=== PATIENT | female | born 1975 | race Caucasian/White ===

== ENCOUNTER 2019-07-24 18:22 | Inpatient (IN) | payer OTHER ==
[2019-07-24 19:32] LABS: BASO % 1.2 % (0-2.0); EOS % 2.6 % (0-4.5); HEMATOCRIT 34.7 % (32.4-45.2); HEMOGLOBIN 11.9 GM/dL (10.7-15.3); LYMPH % 31.2 % (8-40); MCH 31.4 pg (25.7-33.7); MCHC 34.2 g/dl (32.0-36.0); MEAN CELL VOLUME 91.8 fl (80-96); MEAN PLT VOLUME 10.1 fl (7.5-11.1); MONO % 8.1 % (3.8-10.2); NEUT % 56.9 % (42.8-82.8); PLATELET COUNT 244 K/MM3 (134-434); RBC 3.78 M/mm3 (3.60-5.2); RDW 13.2 % (11.6-15.6); WHITE BLOOD COUNT 7.3 K/mm3 (4.0-10.0)
--- NOTE | 2019-07-24 19:35 | PDOC ---
History of Present Illness - General Chief Complaint: Pain Stated Complaint: RT SIDE ABD PAIN Time Seen by Provider: 07/24/19 19:35 History Source: Patient Exam Limitations: No Limitations - History of Present Illness Initial Comments: 44-year-old female with past medical history of gallstones, kidney stones presented to the emergency department for right upper quadrant pain. Patient reported shes been dealing with this pain since around , the week after she followed up with a G.I. doctor, who told her she had gallstones and a kidney stone after getting an ultrasound performed. She reported she had an endoscopy performed two weeks ago, showing she has duodenitis, she reported she was placed on a PPI at that time. Patient reported today she was eating bland foods (banana/soup), and was still feeling pain after every time as she would eat food. She reported the pain is not worse in intensity than before, but it is occurring with more frequency and even with bland foods now. She denies fever, chills, Chest pain, shortness of breath, headache, blood in stool. She reported she has loose stools sometimes. Pt last took Tylenol around 1300 today. ROS General: denied fever, chills, generalized weakness. HEENT: denied sore throat, rhinorrhea, ear pain. Cardiovascular: denied chest pain, palpitations, syncope, diaphoresis. Respiratory: denied shortness of breath, cough, sputum production, hemoptysis. Gastrointestinal: admitted to abdominal pain. denied nausea, vomiting, diarrhea , constipation, blood in stool. Genitourinary: denied dysuria, increased urinary frequency, hematuria, urinary incontinence, flank pain. Back: denied back pain. Musculoskeletal: denied joint pain, muscle pain, joint swelling. Neurological: denied headache, dizziness, numbness, tingling, weakness. Integumentary: denied rash, laceration, abrasion. Hematologic/Lymphatic: denied bruising or bleeding. PE Constitutional: Well-nourished, Well-developed, appearing stated age. HEENT: head is normocephalic, atraumatic. EOMI. PERRLA. Neck: supple. Full ROM. Cardiovascular: regular heart rhythm. no murmurs. no pericardial friction rub. Respiratory: clear to auscultation bilaterally. no crackles, rhonchi or wheezing. no stridor. Gastrointestinal: soft, flat. tenderness to RUQ, positive murphys. normal bowel sounds. no rebound, guarding, masses. Extremities: peripheral pulses intact. no lower extremity edema. Neurological: CN 2-12 grossly intact. moves all four extremities. Psych: awake, alert, oriented x3. follows commands. answers questions appropriately. Past History - Past Medical History Allergies/Adverse Reactions: Allergies Allergy/AdvReac Type Severity Reaction Status Date / Time codeine Allergy Severe Difficulty Verified 07/24/19 18:44 Breathing Home Medications: Ambulatory Orders Ibuprofen [Motrin -] 600 mg PO TID #21 tablet 07/27/19 - Immunization History Immunization Up to Date: Yes - Psycho Social/Smoking Cessation Hx Smoking History: Never smoked Have you smoked in the past 12 months: No Information on smoking cessation initiated: No Hx Alcohol Use: No Drug/Substance Use Hx: No Substance Use Type: None Hx Substance Use Treatment: No *Physical Exam - Vital Signs Last Vital Signs Temp Pulse Resp BP Pulse Ox 98.2 F 79 18 125/79 97 07/24/19 18:44 07/24/19 18:44 07/24/19 18:44 07/24/19 18:44 07/24/19 18:44 ED Treatment Course - LABORATORY CBC & Chemistry Diagram: 07/24/19 19:15 07/24/19 19:15 Medical Decision Making - Medical Decision Making 44 year old female with above PMH presented to ED for RUQ pain associated with eating. Abdominal examination significant for RUQ tenderness with positive murphys. PSH: tubal ligation Pt reported she is currently on her menstrual period. Initial Vital Signs Temp Pulse Resp BP Pulse Ox 98.2 F 79 18 125/79 97 07/24/19 18:44 07/24/19 18:44 07/24/19 18:44 07/24/19 18:44 07/24/19 18:44 Afebrile. No tachycardia. No tachypnea. No hypotension. No hypoxia on room air. Labs ordered: CBC, CMP, UA/UC, serum testing, lipase Imaging ordered: RUQ US Medications ordered: pepcid, maalox, tylenol, normal saline bolus 1000 cc once Pt's symptoms seem consistent with cholelithiasis vs cholecystitis. Nephrolithiasis low on differential, but also possible. Will evaluate for right sided hydro with RUQ US. 07/24/19 19:54 Laboratory Last Values Lipase 171 U/L (73-393) 07/24/19 19:15 Urine Color Yellow 07/24/19 19:15 Urine Appearance Clear 07/24/19 19:15 Urine pH 5.5 (5.0-8.0) 07/24/19 19:15 Ur Specific [place] 1.019 (1.010-1.035) 07/24/19 19:15 Urine Protein Negative (NEGATIVE) 07/24/19 19:15 Urine Glucose (UA) Negative (NEGATIVE) 07/24/19 19:15 Urine Ketones Negative (NEGATIVE) 07/24/19 19:15 Urine Blood 3+ (NEGATIVE) H 07/24/19 19:15 Urine Nitrite Negative (NEGATIVE) 07/24/19 19:15 Urine Bilirubin Negative (NEGATIVE) 07/24/19 19:15 Urine Urobilinogen 0.2 mg/dL (0.2-1.0) 07/24/19 19:15 Ur Leukocyte Esterase Negative (NEGATIVE) 07/24/19 19:15 Urine WBC (Auto) 0 /hpf (0-5) 07/24/19 19:15 Urine RBC (Auto) 19 /hpf (0-4) 07/24/19 19:15 Urine Casts (Auto) 1 /lpf (0-8) 07/24/19 19:15 U Epithel Cells (Auto) 0.4 /HPF (0-5/HPF) 07/24/19 19:15 Urine Bacteria (Auto) 1.9 /hpf (NEGATIVE) 07/24/19 19:15 No pancreatitis. Hematuria likely contaminate of menstrual bleeding. No UTI. 07/24/19 20:05 CBC WBC 7.3 K/mm3 (4.0-10.0) 07/24/19 19:15 RBC 3.78 M/mm3 (3.60-5.2) 07/24/19 19:15 Hgb 11.9 GM/dL (10.7-15.3) 07/24/19 19:15 Hct 34.7 % (32.4-45.2) 07/24/19 19:15 MCV 91.8 fl (80-96) 07/24/19 19:15 MCH 31.4 pg (25.7-33.7) 07/24/19 19:15 MCHC 34.2 g/dl (32.0-36.0) 07/24/19 19:15 RDW 13.2 % (11.6-15.6) 07/24/19 19:15 Plt Count 244 K/MM3 (134-434) 07/24/19 19:15 MPV 10.1 fl (7.5-11.1) 07/24/19 19:15 Absolute Neuts (auto) 4.2 K/mm3 (1.5-8.0) 07/24/19 19:15 Neutrophils % 56.9 % (42.8-82.8) 07/24/19 19:15 Lymphocytes % 31.2 % (8-40) 07/24/19 19:15 Monocytes % 8.1 % (3.8-10.2) 07/24/19 19:15 Eosinophils % 2.6 % (0-4.5) D 07/24/19 19:15 Basophils % 1.2 % (0-2.0) 07/24/19 19:15 Nucleated RBC % 0 % (0-0) 07/24/19 19:15 No leukocytosis. No anemia. 07/24/19 20:33 RUQ US report: Referring Physician: NORMAN ROJAS Comments: Shalom Lopez MD wrote on Jul 24, 2019 at 08:28 PM: Referring Physician: NORMAN ROJAS Patient Name: VEENA HINES THIS IS A PRELIMINARY REPORT FROM [facility] DATE OF SERVICE: 2019-07-24 19:38:12 IMAGES: 55 EXAM: Right upper quadrant ultrasound History: 44-year-old female, right upper quadrant pain, history of gallbladder stones, evaluate for cholecystitis versus nephrolithiasis Comparison: No comparison exam is available. Technique: Multiple transverse and longitudinal images of the right upper quadrant, IVC are obtained. Findings: Liver: Hyperechoic liver parenchyma No biliary ductal dilatation. Normal directional hepatic flow. Gallbladder: Cholelithiasis and a distended gallbladder with wall echo shadow complex. Mild gallbladder wall thickening up to 3.5 mm. No sonographic Gracia sign. Extra hepatic bile duct caliber: Within normal limits measuring 5 mm. Pancreatic head and body: Not well evaluated on ultrasound. Right kidney: No hydronephrosis. Fluid: None. IVC: Visualized portions unremarkable. IMPRESSION: Cholelithiasis and a distended gallbladder with mild wall thickening. No sonographic Garcia sign. Examination is equivocal for acute cholecystitis. No right renal calculi identified. Hyperechoic liver parenchyma is nonspecific and can be seen in the setting of hepatic steatosis and other diffuse hepatic parenchymal diseases. THIS DOCUMENT HAS BEEN ELECTRONICALLY SIGNED Shalom Lopez MD 07/24/2019 20:27 GREGORIO Cuevas. Please call [facility] [phone] with questions. Shalom Lopez MD Clinicians - Please contact [facility] with further questions at [phone] Patients - Please contact your Ordering Provider with questions. Pt reported she last ate a banana around 1700 and potatoe soup around 1300. CMP Sodium 139 mmol/L (136-145) 07/24/19 19:15 Potassium 4.1 mmol/L (3.5-5.1) 07/24/19 19:15 Chloride 106 mmol/L (98-107) 07/24/19 19:15 Carbon Dioxide 26 mmol/L (21-32) 07/24/19 19:15 Anion Gap 6 MMOL/L (8-16) L 07/24/19 19:15 BUN 8.6 mg/dL (7-18) 07/24/19 19:15 Creatinine 0.5 mg/dL (0.55-1.3) L 07/24/19 19:15 Est GFR (CKD-EPI)AfAm 134.52 07/24/19 19:15 Est GFR (CKD-EPI)NonAf 116.07 07/24/19 19:15 Random Glucose 97 mg/dL (74-106) 07/24/19 19:15 Calcium 8.4 mg/dL (8.5-10.1) L 07/24/19 19:15 Total Bilirubin 0.2 mg/dL (0.2-1) 07/24/19 19:15 AST 16 U/L (15-37) 07/24/19 19:15 ALT 31 U/L (13-61) 07/24/19 19:15 Alkaline Phosphatase 84 U/L (45-117) 07/24/19 19:15 Total Protein 7.1 g/dl (6.4-8.2) 07/24/19 19:15 Albumin 3.6 g/dl (3.4-5.0) 07/24/19 19:15 Lipase 171 U/L (73-393) 07/24/19 19:15 Serum , Qual Negative 07/24/19 19:15 No clinically concerning electrolyte abnormalities. No DARSHAN. Not ransaminitis. Lipase wnl. Serum testing negative. 07/24/19 20:[address] Bond was consulted, he recommended admission with Surgery consult with Dr. Quijano. Consult placed in computer. Pt informed and agrees with plan for care. Pending admission. If acute cholecysitis would be mild, no fever, no elevated WBC, no LFT elevation , non-toxic appearing, will hold antibiotics for now. Case discussed with Dr. King. 07/24/19 22:01 EKG performed at 2158: rate 65, regular rhythm, normal axis, normal intervals, no acute ST changes. Discharge - Discharge Information Problems reviewed: Yes Clinical Impression/Diagnosis: Cholelithiasis Qualifiers: Cholecystitis acuity: chronic Condition: Stable Disposition: HOME - Admission Yes - Follow up/Referral - Patient Discharge Instructions - Post Discharge Activity
[2019-07-24 19:37] LABS: EPI CELLS 0.4 /HPF (0-5/HPF); HYALINE CASTS 1 /lpf (0-8); PH,URINE 5.5 (5.0-8.0); URINE APPEARANCE CLEAR; URINE BACTERIA 1.9 /hpf (NEGATIVE); URINE BILIRUBIN NEGATIVE (NEGATIVE); URINE COLOR YELLOW; URINE GLUCOSE (UA) NEGATIVE (NEGATIVE); URINE KETONE NEGATIVE (NEGATIVE); URINE LEUK ESTERASE NEGATIVE (NEGATIVE); URINE NITRITE NEGATIVE (NEGATIVE); URINE PROTEIN NEGATIVE (NEGATIVE); URINE RBC 19 /hpf (0-4); URINE UROBILINOGEN 0.2 mg/dL (0.2-1.0); URINE WBC 0 /hpf (0-5)
[2019-07-24] MEDS ORDERED: SODIUM CHLORIDE 1,000 ML IV STA (19:37)
[2019-07-24] MEDS ORDERED: MAG HYDROX/AL HYDROX/SIMETH 30 ML UNIT-DOSE CUP PO ONE (19:37)
[2019-07-24] MEDS ORDERED: FAMOTIDINE 20 MG/50 ML IVPB 20 MG/50 ML MG IVPB ONE ×2 (19:37→19:46)
[2019-07-24] MEDS ORDERED: ACETAMINOPHEN 1000 MG/100 ML VIAL (NON FORMULARY) IVPB ONE (19:37)
--- NOTE | 2019-07-24 19:45 | PDOC ---
Attending Attestation - Resident Resident Name: Dana Moya - ED Attending Attestation I have performed the following: I have examined & evaluated the patient, The case was reviewed & discussed with the resident, I agree w/resident's findings & plan - HPI HPI: 07/24/19 19:48 Pt has RUQ pain and flank pain HX of kidney and GB stones No with pain despite bland diet/low fat diet for her gastritis. - Physicial Exam PE: 07/24/19 21:18 Agree with resident exam +RUQ pain; no flank pain elicited by me No suprapubic pain Ext non swollen no rashes HEENT normal afebrile no timbo deficits. - Medical Decision Making 07/24/19 21:19 Pt comes with RUQ pain; foind to have gb stones and biliary colic. NO thickening of the GB wall and no CBD dilation. She will be admitted for abd pain - accepted for admission by her PMD (Dr Castillo) - She will get GI eval in house. 07/24/19 21:58 Pt is stable at this time with hydration and with Iv tylenol; she doesn't need more pain meds at this time.
[2019-07-24] MEDS ORDERED: MAG HYDROX/AL HYDROX/SIMETH 30 ML UNIT-DOSE CUP ONE ×2 (19:46)
[2019-07-24] MEDS ORDERED: ACETAMINOPHEN INJECTION 100 ML IVPB ONE (19:46)
[2019-07-24 20:13] LABS: ALBUMIN 3.6 g/dl (3.4-5.0); BILIRUBIN,TOTAL 0.2 mg/dL (0.2-1); BLOOD UREA NITROGEN 8.6 mg/dL (7-18); CALCIUM 8.4 mg/dL (8.5-10.1); CREATININE 0.5 mg/dL (0.55-1.3); POTASSIUM 4.1 mmol/L (3.5-5.1); TOT PROT 7.1 g/dl (6.4-8.2)
[2019-07-24 23:43] VITALS: BMI 30.4
--- NOTE | 2019-07-25 09:36 | CONSULT ---
- Consultation REQUESTING PROVIDER: CONSULT REQUEST: We have been asked to surgically evaluate this patient for RUQ pain, gallbladder disease. PCP:Estela Bond HISTORY OF PRESENT ILLNESS: 38 yo female with h/o of gallstone disease. She started to have bloating and pain this fall and was seen by GI as an outpatient at [facility]. s/p EGD several weeks ago and was found to have inflammation in the duodenum, biopsy taken and negative as per patient report. She has been taking prilosec as prescribed after the procedure. Her RUQ pain/bloating increased and she was admitted to the hospital. No nausea or emesis this am. Pain improved with tylenol. She denies any fevers/chills. PMHx: kidney stone PSHx: laparoscopic tubal ligation Home Medications Medication Instructions Recorded NK [No Known Home Medication] 07/24/19 Allergies Allergy/AdvReac Type Severity Reaction Status Date / Time codeine Allergy Severe Difficulty Verified 07/24/19 18:44 Breathing REVIEW OF SYSTEMS: CONSTITUTIONAL: Absent: fever, chills CARDIOVASCULAR: Present: palpitations(resolved was seen by cardiology and had Echo/holter monitor) RESPIRATORY: Absent: cough, shortness of breath GASTROINTESTINAL: Present: abdominal pain, abdominal distension to upper abd. No puritits/icteric sclera. GENITOURINARY: Absent: dysuria, hematuria MUSCULOSKELETAL: Present: right hip pain s/p injection in the pain with pain resolution HEMATOLOGIC/IMMUNOLOGIC: Absent: easy bleeding, easy bruising PHYSICAL EXAM: GENERAL: Awake, alert, and fully oriented, in no acute distress. LUNGS: Clear to auscultation bilat anteriorly. No wheezes. HEART: Regular rate and rhythm. No murmurs ABDOMEN: Soft, mild RUQ pain with palpation. No masses. MUSCULOSKELETAL: No CVA tenderness. LOWER EXTREMITIES: 2+ pulses, warm, well-perfused. No calf tenderness. NEUROLOGICAL: Normal speech, gait not observed. PSYCH: Cooperative. Good eye contact. Appropriate mood and affect. Vital Signs Temperature 98.0 F 07/25/19 08:14 Pulse Rate 85 07/25/19 08:14 Respiratory Rate 15 07/25/19 08:14 Blood Pressure 130/70 07/25/19 08:14 O2 Sat by Pulse Oximetry (%) 99 07/25/19 08:22 Lab Results WBC 7.3 K/mm3 (4.0-10.0) 07/24/19 19:15 RBC 3.78 M/mm3 (3.60-5.2) 07/24/19 19:15 Hgb 11.9 GM/dL (10.7-15.3) 07/24/19 19:15 Hct 34.7 % (32.4-45.2) 07/24/19 19:15 MCV 91.8 fl (80-96) 07/24/19 19:15 MCHC 34.2 g/dl (32.0-36.0) 07/24/19 19:15 RDW 13.2 % (11.6-15.6) 07/24/19 19:15 Plt Count 244 K/MM3 (134-434) 07/24/19 19:15 Sodium 139 mmol/L (136-145) 07/24/19 19:15 Potassium 4.1 mmol/L (3.5-5.1) 07/24/19 19:15 Chloride 106 mmol/L (98-107) 07/24/19 19:15 Carbon Dioxide 26 mmol/L (21-32) 07/24/19 19:15 Anion Gap 6 MMOL/L (8-16) L 07/24/19 19:15 BUN 8.6 mg/dL (7-18) 07/24/19 19:15 Creatinine 0.5 mg/dL (0.55-1.3) L 07/24/19 19:15 Random Glucose 97 mg/dL (74-106) 07/24/19 19:15 Calcium 8.4 mg/dL (8.5-10.1) L 07/24/19 19:15 Laboratory Tests 07/24/19 19:15 Serum , Qual Negative US: gallbladder thickened and multiple gallstones Problem List - Problems (1) Cholelithiasis Assessment/Plan: Pt with symptomatic cholelithaisis s/p EGD with negative biopsy for H pylori. Persistant RUQ pain mostly likely caused by chronic cholelithiasis. Will plan for laparoscopic choleycystectomy today with Dr. Quijano if patient aggreable, she has some further questions for him prior to giving consent for the procedure. Spoke with the medical team, pt to remain npo for possible surgery today Code(s): K80.20 - CALCULUS OF GALLBLADDER W/O CHOLECYSTITIS W/O OBSTRUCTION Qualifiers: Cholecystitis acuity: chronic
[2019-07-25] MEDS ORDERED: SODIUM CHLORIDE 1,000 ML IV SCH ×2 (09:45→10:15)
[2019-07-25] MEDS ORDERED: BUPIVACAINE HCL/PF 0.5% (5 MG/ML) 30 ML VIAL IJ ONE ×2 (09:45→14:28)
[2019-07-25] MEDS ORDERED: FLU VACCINE QUAD 60 MCG/0.5 ML (MDV 19-20) IM ONE ×2 (10:00→20:30)
[2019-07-25] MEDS ORDERED: ACETAMINOPHEN 325 MG TABLET (FP) PO PRN ×2 (10:16→16:49)
--- NOTE | 2019-07-25 10:29 | PN ---
Progress Note, Physician Chief Complaint: Pt lying in bed afebrile,no pain abdomen now No nausea,vomiting Pt is NPO - Current Medication List Current Medications: Active Medications Acetaminophen (Tylenol -) 650 mg PO Q6H PRN PRN Reason: PAIN LEVEL 1-5 Sodium Chloride (Normal Saline -) 1,000 mls @ 100 mls/hr IV ASDIR SALMA - Objective Vital Signs: Vital Signs Temperature 98.0 F 07/25/19 08:14 Pulse Rate 85 07/25/19 08:14 Respiratory Rate 15 07/25/19 08:14 Blood Pressure 130/70 07/25/19 08:14 O2 Sat by Pulse Oximetry (%) 99 07/25/19 08:22 Eyes: Yes: Conjunctiva Clear Neck: Yes: Supple, Trachea Midline Cardiovascular: Yes: Regular Rate and Rhythm Respiratory: Yes: Regular, CTA Bilaterally Gastrointestinal: Yes: Normal Bowel Sounds, Soft Musculoskeletal: Yes: WNL Extremities: Yes: WNL Edema: No Peripheral Pulses WNL: Yes Neurological: Yes: WNL, Alert Psychiatric: Yes: WNL, Alert Labs: CBC, BMP 07/24/19 19:15 07/24/19 19:15 - ....Imaging Chest X-ray: Report Reviewed Ultrasound: Report Reviewed Assessment/Plan cholelithiasis biliary colic gerd plan Keep NPO IV fluid TYLENOL prn for PAIN SUrgery and GI f/u
[2019-07-25 11:32] LABS: INR 1.01 (0.83-1.09); PROTHROMBIN TIME (PATIENT) 11.9 SEC (9.7-13.0)
--- NOTE | 2019-07-25 11:39 | CON.GI ---
Consult Consult Specialty:: Gastroenterology Referred by:: Dr Estela Gorman Reason for Consultation:: abdominal pain - History of Present Illness Chief Complaint: Abdominal pain History of Present Illness: 44F has been having a postrandial epigastric pain and bloating that radiate into both flanks for several months. She was seen by Dr Bony Pulido who performed an EGD about 2 weeks ago which revealed duodenitis. Prilosec was started but had no effect on her pain. He also did a sonogram that revealed gallstones and a renal stone. She denies early satiety, dysphagia and has been moving her bowels well. - History Source History Provided By: Patient Limitations to Obtaining History: No Limitations - Past Medical History Cardio/Vascular: Yes: Hyperlipdemia Hepatobiliary: Yes: Cholelithiasis ...: No - Past Surgical History Past Surgical History: Yes: Breast Biopsy (benign breast biopsy), Tubal Ligation , Upper Endoscopy - Alcohol/Substance Use Hx Alcohol Use: No History of Substance Use: reports: None - Smoking History Smoking history: Never smoked Have you smoked in the past 12 months: No - Social History ADL: Independent Home Medications - Allergies Allergies/Adverse Reactions: Allergies Allergy/AdvReac Type Severity Reaction Status Date / Time codeine Allergy Severe Difficulty Verified 07/24/19 18:44 Breathing - Home Medications Home Medications: Ambulatory Orders NK [No Known Home Medication] 07/24/19 Physical Exam-GI Vital Signs: Vital Signs Temperature 98.0 F 07/25/19 08:14 Pulse Rate 85 07/25/19 08:14 Respiratory Rate 15 07/25/19 08:14 Blood Pressure 130/70 07/25/19 08:14 O2 Sat by Pulse Oximetry (%) 99 07/25/19 08:22 CBC,CMP WBC 7.3 K/mm3 (4.0-10.0) 07/24/19 19:15 RBC 3.78 M/mm3 (3.60-5.2) 07/24/19 19:15 Hgb 11.9 GM/dL (10.7-15.3) 07/24/19 19:15 Hct 34.7 % (32.4-45.2) 07/24/19 19:15 MCV 91.8 fl (80-96) 07/24/19 19:15 MCH 31.4 pg (25.7-33.7) 07/24/19 19:15 MCHC 34.2 g/dl (32.0-36.0) 07/24/19 19:15 RDW 13.2 % (11.6-15.6) 07/24/19 19:15 Plt Count 244 K/MM3 (134-434) 07/24/19 19:15 MPV 10.1 fl (7.5-11.1) 07/24/19 19:15 Absolute Neuts (auto) 4.2 K/mm3 (1.5-8.0) 07/24/19 19:15 Neutrophils % 56.9 % (42.8-82.8) 07/24/19 19:15 Lymphocytes % 31.2 % (8-40) 07/24/19 19:15 Monocytes % 8.1 % (3.8-10.2) 07/24/19 19:15 Eosinophils % 2.6 % (0-4.5) D 07/24/19 19:15 Basophils % 1.2 % (0-2.0) 07/24/19 19:15 Nucleated RBC % 0 % (0-0) 07/24/19 19:15 Sodium 139 mmol/L (136-145) 07/24/19 19:15 Potassium 4.1 mmol/L (3.5-5.1) 07/24/19 19:15 Chloride 106 mmol/L (98-107) 07/24/19 19:15 Carbon Dioxide 26 mmol/L (21-32) 07/24/19 19:15 Anion Gap 6 MMOL/L (8-16) L 07/24/19 19:15 BUN 8.6 mg/dL (7-18) 07/24/19 19:15 Creatinine 0.5 mg/dL (0.55-1.3) L 07/24/19 19:15 Est GFR (CKD-EPI)AfAm 134.52 07/24/19 19:15 Est GFR (CKD-EPI)NonAf 116.07 07/24/19 19:15 Random Glucose 97 mg/dL (74-106) 07/24/19 19:15 Calcium 8.4 mg/dL (8.5-10.1) L 07/24/19 19:15 Total Bilirubin 0.2 mg/dL (0.2-1) 07/24/19 19:15 AST 16 U/L (15-37) 07/24/19 19:15 ALT 31 U/L (13-61) 07/24/19 19:15 Alkaline Phosphatase 84 U/L (45-117) 07/24/19 19:15 Total Protein 7.1 g/dl (6.4-8.2) 07/24/19 19:15 Albumin 3.6 g/dl (3.4-5.0) 07/24/19 19:15 Lipase 171 U/L (73-393) 07/24/19 19:15 Serum , Qual Negative 07/24/19 19:15 Current Medications Generic Name Dose Route Start Last Admin Trade Name Freq PRN Reason Stop Dose Admin Acetaminophen 650 mg 07/25/19 10:16 Tylenol - PO Q6H PRN PAIN LEVEL 1-5 Sodium Chloride 1,000 mls @ 100 mls/hr 07/25/19 10:15 07/25/19 10:40 Normal Saline - IV 100 mls/hr ASDIR SALMA Administration Constitutional: Yes: No Distress Eyes: Yes: Conjunctiva Clear HENT: Yes: Atraumatic Neck: Yes: Trachea Midline Cardiovascular: Yes: Regular Rate and Rhythm Respiratory: Yes: CTA Bilaterally Gastrointestinal Inspection: Yes: Scars (healed BTL incision) ...Auscultate: Yes: Normoactive Bowel Sounds ...Palpate: Yes: Soft, Other (nontender at present) Labs: CBC, BMP 07/24/19 19:15 07/24/19 19:15 INR, PTT INR 1.01 (0.83-1.09) 07/25/19 10:42 Imaging - Results Ultrasound: Report Reviewed ( Final Report US ABDOMEN US -LIMITED Show Printer-Friendly Version Patient Name: Veena Hines : 1975 ID: [id number] Study Date: 24-Jul-2019 19:38 Jaz Yo Name: VEENA HINES DEPARTMENT OF RADIOLOGY Phys: Dana Moya RESIDENT : 1975 Age: 44 Sex: F [facility] Acct: [id number] Loc: [address] Exam Date: 07/24/19 Status: [place] [address] Unit Number: [id number] EXAM#: TYPE/EXAM: RESULT: [id number] US/ABDOMEN US -LIMITED HISTORY PROVIDED: Right upper quadrant pain. Real time examination of the abdomen demonstrates the following: The gallbladder is somewhat thickened and does contain multiple calculi. The assistant to the dean describes a negative Garcia's sign. There is no evidence of intra or extrahepatic biliary duct dilatation. The liver is enlarged measuring 18.3 cm in craniocaudad dimension. It is hyperechoic in texture consistent with diffuse fatty infiltration. No discrete intrahepatic masses are identified. Hepatopedal flow is documented within the main portal vein. The pancreas is normal in size and texture with no pancreatic masses identified. The tail of the pancreas was not well visualized due to overlying bowel gas. There is no evidence of hydronephrosis or acute abnormalities of the right kidney. There is no evidence of AAA. The IVC is patent. IMPRESSION: 1. Cholelithiasis. 2. Hepatomegaly and diffuse fatty infiltration of the liver. Reported By: Richard Will MD [id number] Technologist: Blanche العراقي Transcribed Date/Time: 07/25/19799 Cytopathologist: Richard Will Printed Date/Time: By: Signed by: Richard Will Signed on: 25-Jul-2019 08:01) Problem List - Problems (1) Abdominal pain Code(s): R10.9 - UNSPECIFIED ABDOMINAL PAIN (2) Duodenitis Code(s): K29.80 - DUODENITIS WITHOUT BLEEDING (3) History of tubal ligation Code(s): Z98.51 - TUBAL LIGATION STATUS (4) Cholelithiasis Code(s): K80.20 - CALCULUS OF GALLBLADDER W/O CHOLECYSTITIS W/O OBSTRUCTION Qualifiers: Cholecystitis acuity: chronic Assessment/Plan Assessment: - Given the negative EGD findings and failure to respond to a PPI and the presence of gallstones cholecystitis is suspected. There is some GB thickening on ultrasound to support this Plan: -- I have endorsed proceeding with cholecystectomy as this is the most likely diagnosis and will prevent her from going on to have biliary pancreatitis and ascending cholangitis. Briefly discussed with Dr Quijano
[2019-07-25] MEDS ORDERED: PROPOFOL 20 ML ONE (11:43)
[2019-07-25] MEDS ORDERED: MIDAZOLAM HCL 2 MG/2 ML SINGLE DOSE VIAL ONE (11:43)
[2019-07-25] MEDS ORDERED: ROCURONIUM BROMIDE 50 MG/5 ML SYRINGE ONE (11:43)
[2019-07-25] MEDS ORDERED: ceFAZolin SODIUM 1 GM VIAL ONE (11:43)
[2019-07-25] MEDS ORDERED: fentaNYL CITRATE 250 MCG/5 ML VIAL ONE (11:43)
[2019-07-25] MEDS ORDERED: KETOROLAC TROMETHAMINE 30 MG/1 ML VIAL ONE (11:43)
--- NOTE | 2019-07-25 12:39 | PN ---
Progress Note (short form) - Note Progress Note: Attending Surgeon Patient seen and evaluated; chart reviewed; for lap cholepossible open; r/b/t/a' s d/w her and she wishes to proceed; informed consent obtained. Maicol Quijano MD FACS
[2019-07-25] MEDS ORDERED: ceFAZolin 2 GRAM PREMIX BAG IVPB ONE (12:45)
[2019-07-25] MEDS ORDERED: NEOSTIGMINE METHYLSULFATE 0.5 MG/ML - 10 ML MDV ONE (12:51)
[2019-07-25] MEDS ORDERED: GLYCOPYRROLATE 0.2 MG/1 ML VIAL ONE (12:52)
--- NOTE | 2019-07-25 13:29 | EKG ---
Test Reason : Blood Pressure : / mmHG Vent. Rate : 065 BPM Atrial Rate : 065 BPM P-R Int : 128 ms QRS Dur : 100 ms QT Int : 432 ms P-R-T Axes : 055 -09 025 degrees QTc Int : 449 ms SINUS RHYTHM WITH PREMATURE ATRIAL COMPLEXES IN A PATTERN OF BIGEMINY BORDERLINE ECG NO PREVIOUS ECGS AVAILABLE Confirmed by LYN MENON MD ([id number]) on 07/25/2019 1:28:38 PM Referred By: Confirmed By:LYN MENON MD
[2019-07-25] MEDS ORDERED: BENZOIN/ALOE VERA/STORAX/TOLU 58 ML BOTTLE ONE (14:37)
[2019-07-25] MEDS ORDERED: ONDANSETRON 4 MG/2 ML VIAL IVPUSH ONE (14:55)
[2019-07-25] MEDS ORDERED: ONDANSETRON 4 MG/2 ML VIAL ONE (14:59)
--- NOTE | 2019-07-25 15:10 | OP ---
Operative Note - Note: Operative Date: 07/25/19 Pre-Operative Diagnosis: cholelithiasis, biliary colic chronic cholecystitis Operation: laparoscopic cholecystectomy Findings: cholelithiasis; minimal gallbladder wall edema Post-Operative Diagnosis: Same as Pre-op Surgeon: Maicol Quijano Performance Test Architect: Charlie Quigley Anesthesiologist/HIDE PASTER: Carlton Stovall Anesthesia: General Specimens Removed: gallbladder and contents Estimated Blood Loss (mls): 20 Drains & Tubes with Location: 10 mm SITA in gallbladder fossa
--- NOTE | 2019-07-25 15:15 | SURG ---
Surgery Lubricating Machine Tender Note Lubricating Machine Tender: Charlie Quigley PA-C (Suzy) Date of Service: 07/25/19 Diagnosis: cholelithiasis, biliary colic chronic cholecystitis Procedure: laparoscopic cholecystectomy I was present for the entirety of the operative procedure. For further detail, please refer to operative report. Visit type - Case Type Case Type: ED Admission - Emergency Emergency Visit: Yes ED Registration Date: 07/24/19 Care time: The patient presented to the Emergency Department on the above date and was hospitalized for further evaluation of their emergent condition. - New patient This patient is new to me today: Yes Date on this admission: 07/25/19 - Critical Care Critical Care patient: No
[2019-07-25] MEDS ORDERED: FAMOTIDINE 20 MG/50 ML IVPB 20 MG/50 ML MG IVPB ONE (15:18)
[2019-07-25] MEDS ORDERED: FAMOTIDINE 20 MG PREMIXED IVPB IVPB ONE (15:20)
[2019-07-25] MEDS ORDERED: ACETAMINOPHEN 500 MG TABLET (FP) PO PRN (16:49)
--- NOTE | 2019-07-25 16:50 | HP ---
DATE OF ADMISSION: 07/24/2019 HISTORY: Patient is a 44-year-old female with a past medical history of gallstones reflux disease. Came to the emergency room with the complaint of right upper quadrant pain on and off for the last 2 weeks. Patient was having similar problem and was seen by the GI doctor and had ultrasound and told her that patient had gallstones and a kidney stone. Patient underwent endoscopy 3 weeks ago and was diagnosed with reflux disease. Patient was on proton pump inhibitor. Since 2 weeks she is having on and off abdominal bloating and pain in the right upper quadrant, nausea, no vomiting. Occasional diarrhea present. No fever. No history of recent travel. PAST MEDICAL HISTORY: Nothing significant. PAST SURGICAL HISTORY: Patient had tubal ligation. ALLERGIES: CODEINE. SOCIAL HISTORY: Patient has 3 children. Lives with the family. REVIEW OF SYSTEMS: General: Denies fever, chills, generalized weakness. Head and Neck: Nothing significant. Cardiovascular: Denies chest pain, palpitations, syncope. Respiratory: No shortness of breath and no cough. Gastrointestinal: Patient complains of right upper quadrant pain associated with the nausea. Genitourinary: There are no urinary symptoms. Musculoskeletal: Occasional back pain. Neurologic: No history of dizziness, numbness, weakness, headache. Hematological: Nothing significant. Patient is having menstruation now. ALLERGIES: Patient allergic to CODEINE. MEDICATIONS: Tylenol p.r.n. PHYSICAL EXAMINATION: Vital Signs: Temperature 98.2, pulse 79 per minute, respirations 18, blood pressure 125/79, pulse oximetry 97. General: Alert and oriented x3 in no apparent distress. Head and Neck: Normal. Chest: Clear. Cardiovascular: First and 2nd sound normal. Abdomen: Soft. No tenderness in the right upper quadrant. Bowel sounds present. No guarding. No rigidity. Extremities: Full range of movement. No edema. Central Nervous System: Alert and oriented x3. No apparent motor or sensory deficit. Reflexes normal. LABORATORIES: CBC;: WBC 7.3, hemoglobin 11.9, hematocrit 34.7, platelets 244. Chemistry; sodium 139, potassium 4.1, chloride 106, carbon dioxide 26, BUN 8.6, creatinine 0.5. AST, ALT normal. Lipase 171. Serum test negative. PT, PTT, INR pending. Chest x-ray: No acute findings. No infiltrate. Patient had EKG done in the emergency room. Sinus rhythm with occasional premature ventricular contractions, incomplete right bundle branch block. Abdominal ultrasound done in the emergency room. It shows cholelithiasis and hepatomegaly with diffuse fatty liver. Patient admitted to the floor with admitting diagnosis of cholelithiasis, biliary colic. ADMITTING DIAGNOSIS: 1. Cholelithiasis. 2. Biliary colic. PLAN: Keep n.p.o. IV fluids started. Start Tylenol p.r.n. for pain. Surgery consult and GI consult called. Patient stable on the floor. Jone [id number]
[2019-07-25] MEDS ORDERED: ONDANSETRON 4 MG/2 ML VIAL IVPUSH PRN (17:00)
[2019-07-25] MEDS: LACTATED RINGERS SOLUTION 1,000 ML IV SCH ×2 (17:17→20:10)
[2019-07-25] MEDS: SODIUM CHLORIDE 1,000 ML IV SCH (17:17)
[2019-07-25] MEDS ORDERED: oxyCODONE HCL 5 MG TABLET PO PRN (17:50)
[2019-07-25] MEDS ORDERED: IBUPROFEN 600 MG TABLET (FP) PO PRN (18:00)
[2019-07-25] MEDS: traMADol HCL 50 MG TABLET PO PRN (20:38)
[2019-07-25] MEDS ORDERED: MORPHINE SULFATE 2 MG/ML VIAL IVPUSH ONE (22:10)
[2019-07-26] MEDS ORDERED: MORPHINE SULFATE 2 MG/ML VIAL IVPUSH ONE (04:19)
[2019-07-26] MEDS: LACTATED RINGERS SOLUTION 1,000 ML IV SCH ×2 (06:05→17:08)
[2019-07-26] MEDS: traMADol HCL 50 MG TABLET PO PRN ×2 (09:56→22:11)
--- NOTE | 2019-07-26 10:18 | PN ---
Progress Note, Physician Chief Complaint: s/p lap cholecystectomy Pt lying in bed afebrile,mild pain abdomen now No nausea,vomiting Pt tolerated clear liquids - Current Medication List Current Medications: Active Medications Acetaminophen (Tylenol -) 1,000 mg PO Q6H PRN PRN Reason: PAIN LEVEL 1-5 Last Admin: 07/25/19 19:22 Dose: 1,000 mg Fentanyl (Sublimaze Injection -) 50 mcg IVPUSH [id number] PRN PRN Reason: PAIN-PACU ORDER X 4 DOSES ONLY Sodium Chloride (Normal Saline -) 1,000 mls @ 100 mls/hr IV [facility] Last Admin: 07/25/19 17:17 Dose: 100 mls/hr Lactated Ringer's (Lactated Ringers Solution) 1,000 mls @ 125 mls/hr IV [facility] Last Admin: 07/26/19 06:05 Dose: 125 mls/hr Ibuprofen (Motrin -) 600 mg PO Q6H PRN PRN Reason: PAIN LEVEL 4 - 6 Ondansetron HCl (Zofran Injection) 4 mg IVPUSH Q6H PRN PRN Reason: NAUSEA AND/OR VOMITING Tramadol HCl (Ultram -) 50 mg PO Q6H PRN PRN Reason: PAIN SCALE 6-10 Last Admin: 07/26/19 09:56 Dose: 50 mg - Objective Vital Signs: Vital Signs Temperature 98.1 F 07/26/19 06:25 Pulse Rate 66 07/26/19 06:25 Respiratory Rate 19 07/26/19 06:25 Blood Pressure 109/61 07/26/19 06:25 O2 Sat by Pulse Oximetry (%) 99 07/25/19 21:00 Constitutional: Yes: Well Nourished, No Distress Eyes: Yes: Conjunctiva Clear HENT: Yes: Atraumatic Neck: Yes: Supple, Trachea Midline, Thyromegaly Cardiovascular: Yes: Regular Rate and Rhythm Respiratory: Yes: Regular, CTA Bilaterally Gastrointestinal: Yes: Soft, Other (SITA drain in place,dressing clean) Musculoskeletal: Yes: WNL Extremities: Yes: WNL Wound/Incision: Yes: Dressing Dry and Intact Neurological: Yes: WNL, Alert ...Motor Strength: WNL Psychiatric: Yes: WNL, Alert Labs: CBC, BMP 07/24/19 19:15 07/24/19 19:15 INR, PTT INR 1.01 (0.83-1.09) 07/25/19 10:42 Assessment/Plan S/p lap cholecystectomy cholelithiasis biliary colic gerd plan pain meds diet as per surgeon SUrgery f/u ambulate
--- NOTE | 2019-07-26 11:45 | PN ---
Progress Note (short form) - Note Progress Note: POD 1, s/p laparoscopic cholecystectomy Pt seen and examined. Reports significant pain, pain regimen limited by pts codeine allergy (reports cp and sob in the past with Tylenol #3). Has not been oob. Voiding in diaper. Tolerating clears. Denies n/v/d, cp/sob. Vital Signs Temp 98.1 F 07/26/19 06:25 Pulse 72 07/26/19 10:00 Resp 20 07/26/19 10:00 BP 136/69 07/26/19 10:00 Pulse Ox 97 07/26/19 09:00 Intake & Output 07/25/19 07/25/19 07/26/19 11:59 23:59 11:59 Intake Total 100 2000 Output Total 330 10 Balance 100 1670 -10 Intake: IV 100 2000 Normal Saline - 1,000 ml 100 @ 100 mls/hr IV ASDIR SALMA Rx#:[id number] Output: Drainage 80 10 Right Lower Abdomen 20 10 Urine 200 Void 200 Estimated Blood Loss 50 Other: Voiding Method Toilet Bedpan Toilet # Unmeasured Voids Void 1 Bowel Movement No No CBC, BMP 07/24/19 19:15 07/24/19 19:15 gen: awake, alert, nad Resp: unlabored on RA Abdo: +ttp in RUQ appropriate to status. Drain in place, with moderate serosanguinous drainage on dressing, reservoir just emptied. New 4x4 and tegaderm applied. Tubing stripped. Remainder of dressings c/d/i, minimal ttp in rest of abdomen. +bowel sounds. A/P: 38 y/o F w/ PMHx gallstone disease, now a/w RUQ pain due to chronic cholecystitis, POD 1, s/p lap danuta Afebrile, VSS SITA 10 ml overnight -Pain regimen changed to Ultram (pt tolerated dose last night without issue) 50mg q4hrs prn, Ibuprofen 600mg q6hrs scheduled, Ofirmev 1g q6hrs scheduled ( alternating with ibuprofen) -OOB -Advance diet as tolerated -Keep drain in place and monitor output -If pain controlled can d/c later today, please call surgery for SITA removal d/w attending Dr Quijano
[2019-07-26] MEDS: IBUPROFEN 600 MG TABLET (FP) PO SCH ×3 (12:06→23:26)
[2019-07-26] MEDS: ACETAMINOPHEN 500 MG TABLET (FP) PO SCH ×3 (12:08→23:26)
--- NOTE | 2019-07-26 12:33 | PN ---
Progress Note (short form) - Note Progress Note: Attending Surgeon POD #1 patient seen and examoned; concur w/ a/p as outlined by DEBBI Quigley. Maicol Quijano MD FACS
[2019-07-26] MEDS: SODIUM CHLORIDE 1,000 ML IV SCH (17:12)
[2019-07-27] MEDS: traMADol HCL 50 MG TABLET PO PRN (04:09)
[2019-07-27] MEDS: ACETAMINOPHEN 500 MG TABLET (FP) PO SCH ×2 (05:18→11:58)
[2019-07-27] MEDS: IBUPROFEN 600 MG TABLET (FP) PO SCH ×2 (05:18→11:59)
[2019-07-27 05:28] VITALS: TEMP 98.2
[2019-07-27] MEDS ORDERED: BACITRACIN 15 GM TUBE TOPICAL OINTMENT TP SCH (10:00)
--- NOTE | 2019-07-27 10:04 | PN ---
Progress Note (short form) - Note Progress Note: Attending Surgeon POD#2 Feeling much better; ambulating and tolerating diet VSS AF abdo-soft; port sites c/d/i; SITA serosanguinous calves-soft o/w negative IMP: doing well PLAN: D/C today to office f/u 7-10 days; SITA removed uneventfully. Maicol Quijano MD FACS
[2019-07-27 11:48] VITALS: BP 126/65; PULSE 77
--- NOTE | 2019-07-27 12:21 | PN ---
Progress Note, Physician Chief Complaint: Pt sitting in bed eating food SITA drain removed afebrile,no pain abdomen now No nausea,vomiting d/o home today - Current Medication List Current Medications: Active Medications Acetaminophen (Tylenol -) 1,000 mg PO Q6HPO [facility] Last Admin: 07/27/19 11:58 Dose: 1,000 mg Bacitracin (Bacitracin -) 1 applic TP DAILY [facility] Sodium Chloride (Normal Saline -) 1,000 mls @ 100 mls/hr IV ASDIR [facility] Last Admin: 07/26/19 17:12 Dose: Not Given Lactated Ringer's (Lactated Ringers Solution) 1,000 mls @ 125 mls/hr IV ASDIR [facility] Last Admin: 07/26/19 17:08 Dose: 125 mls/hr Ibuprofen (Motrin -) 600 mg PO Q6HPO [facility] Last Admin: 07/27/19 11:59 Dose: 600 mg Ondansetron HCl (Zofran Injection) 4 mg IVPUSH Q6H PRN PRN Reason: NAUSEA AND/OR VOMITING Tramadol HCl (Ultram -) 50 mg PO Q4H PRN PRN Reason: PAIN SCALE 6-10 Last Admin: 07/27/19 04:09 Dose: 50 mg - Objective Vital Signs: Vital Signs Temperature 98.2 F 07/27/19 05:27 Pulse Rate 77 07/27/19 09:00 Respiratory Rate 20 07/27/19 09:00 Blood Pressure 126/65 07/27/19 09:00 O2 Sat by Pulse Oximetry (%) 97 07/26/19 09:00 Constitutional: Yes: No Distress Eyes: Yes: Conjunctiva Clear HENT: Yes: Atraumatic Neck: Yes: Supple Cardiovascular: Yes: WNL, Regular Rate and Rhythm Respiratory: Yes: Regular, CTA Bilaterally Gastrointestinal: Yes: Normal Bowel Sounds, Soft, Other (dressing in place, abdomen soft) Musculoskeletal: Yes: WNL Extremities: Yes: WNL Edema: No Peripheral Pulses WNL: Yes Wound/Incision: Yes: Dressing Dry and Intact ...Motor Strength: WNL Psychiatric: Yes: WNL Labs: CBC, BMP 07/24/19 19:15 07/24/19 19:15 INR, PTT INR 1.01 (0.83-1.09) 07/25/19 10:42 Assessment/Plan s/p lap cholecystectomy cholelithiasis biliary colic gerd plan d/c home continue pain medications f/u with surgeon and Pmd
--- NOTE | 2019-07-27 12:38 | PN.GI ---
GI Progress Note Subjective: GI NOte: Pain free after surgery and tolerating diet. Wants to go home - Objective Vital Signs: Vital Signs Temperature 98.2 F 07/27/19 05:27 Pulse Rate 77 07/27/19 09:00 Respiratory Rate 20 07/27/19 09:00 Blood Pressure 126/65 07/27/19 09:00 O2 Sat by Pulse Oximetry (%) 97 07/26/19 09:00 Constitutional: Calm Gastrointestinal Inspection: Yes: Scars (healing incisiions) ...Auscultate: Yes: Normoactive Bowel Sounds ...Palpate: Yes: Soft Labs: CBC, BMP 07/24/19 19:15 07/24/19 19:15 INR, PTT INR 1.01 (0.83-1.09) 07/25/19 10:42 Assessment/Plan Assessment: - s/p lap choly for cholecystitis Plan: -- No GI objections to discharge Problem List - Problems (1) Abdominal pain Code(s): R10.9 - UNSPECIFIED ABDOMINAL PAIN (2) Duodenitis Code(s): K29.80 - DUODENITIS WITHOUT BLEEDING (3) History of tubal ligation Code(s): Z98.51 - TUBAL LIGATION STATUS (4) Cholelithiasis Code(s): K80.20 - CALCULUS OF GALLBLADDER W/O CHOLECYSTITIS W/O OBSTRUCTION Qualifiers: Cholecystitis acuity: chronic (5) Cholecystitis with cholelithiasis Code(s): K80.10 - CALCULUS OF GALLBLADDER W CHRONIC CHOLECYST W/O OBSTRUCTION
--- NOTE | 2019-07-28 16:28 | PATH ---
Surgical Pathology Report Patient Name: KISHA HINES [facility]. Rec. #: [id number] /Age/Gender: 1975 (Age: 44) / F Account: [id number] Location: [address] [place] [address] Taken: 07/25/2019 Received: 07/26/2019 Reported: 07/28/2019 Physicians: Maicol Quijano MD Specimen(s) Received GALLBLADDER Clinical History Cholecystitis, cholelithiasis Final Diagnosis GALLBLADDER, LAPAROSCOPIC CHOLECYSTECTOMY: CHRONIC CHOLECYSTITIS WITH CHOLELITHIASIS. DENSE FIBROUS ADHESIONS AND ASSOCIATED ADHERENT LIVER PARENCHYMA WITHOUT SIGNIFICANT PATHOLOGIC FINDINGS. Electronically Signed Kisha Mayorga M.D. Gross Description Received in formalin, labeled "gallbladder," is a 14.5 x 3.0 x 3.0 cm. gallbladder with a 0.2 cm. in length portion of cystic duct attached. The outer surface is jones-lovell with a focal defect and varies from smooth to shaggy. The lumen contains green, tenacious bile as well as abundant yellow-brown, irregular to fragmented choleliths ranging from 0.1-2.0 cm in greatest dimension. The mucosa is green and focally eroded. The wall of the gallbladder averages 0.1 cm. in thickness. Meat Inspector sections are submitted in one cassette. 07/26/2019 [facility]07/26/2019
--- NOTE | 2019-07-29 18:58 | DS ---
DATE OF ADMISSION: 07/24/2019 DATE OF DISCHARGE: HOSPITAL COURSE: The patient is a 44-year-old female admitted with right upper quadrant pain. At the time of admission, vital signs stable. Labs were done, white count was normal at 7.3, hemoglobin 11.9, hematocrit 34.7, platelets were normal. panel was normal. Patient had x-ray chest done that was normal. Abdominal ultrasound done in the ER, and that shows cholelithiasis. The x-ray chest was normal. EKG shows sinus rhythm with complexes. Patient admitted, seen by the surgeon. GI consult was done. Patient had laparoscopic cholecystectomy done on July 25. SITA drain was in place. Postoperatively course was uneventful. SITA drain removed. Patient tolerated procedure, had normal food, tolerated the food, ambulating without any difficulty. Patient passed flatus. Postoperatively it was uneventful, afebrile during the hospitalization. Patient was stable during hospitalization. Discharged home on pain medicine in a stable condition. Recommend to follow with the surgeon in 1 week. SITA drain removed. Patient discharged home in a stable condition. NAVA CARY M.D. ROBERTO [id number]
--- NOTE | 2019-07-29 19:00 | OP ---
DATE OF OPERATION: 07/25/2019 PREOPERATIVE DIAGNOSES: Cholelithiasis, biliary colic, and chronic cholecystitis. POSTOPERATIVE DIAGNOSES: Cholelithiasis, biliary colic, and chronic cholecystitis. PROCEDURE: Laparoscopic cholecystectomy. SURGEON: Maicol Quijano MD TRAP OPERATOR: DEBBI Cosme ANESTHESIA: General. FINDINGS: Cholelithiasis and minimal gallbladder wall edema. The rest of the findings were unremarkable. PROCEDURE: The patient was placed on the operating table in the supine position and after the induction of general anesthesia the patient's abdomen was prepped with ChloraPrep and draped in sterile fashion. A timeout was taken and pneumoperitoneum established above the umbilicus using a Veress needle. Once 15 mmHg of pressure were obtained, a 5-mm port was placed at the umbilicus and additional lateral 5-mm ports and a subxiphoid 12-mm port. Laparoscopy was carried out and the previously noted findings were observed. Dissection was begun at the neck of the gallbladder where the peritoneum was opened medially and laterally using blunt dissection and electrocautery. The cystic duct was identified coursing from the neck of the gallbladder towards the common bile duct and it was dissected using blunt dissection proximally and distally for length. Similarly, the artery was identified and dissected proximally and distally for length. A critical view of safety was taken and then the duct and the artery were clipped twice proximally and twice distally with large hemoclips. The duct and artery were then serially divided using Endoshears. Hemostasis was checked for and noted to be good and then the gallbladder was removed from the liver bed in a retrograde fashion using electrocautery. Prior to removal from the edge of the liver, hemostasis in the liver bed was again checked for and noted to be good and then the gallbladder removed from the edge of the liver, placed in an EndoCatch, and brought out through the subxiphoid port. Pneumoperitoneum was reestablished. Copious irrigation was carried out with saline. Hemostasis was verified again. A 10-mm Chon-Patterson drain was placed in the right hepatorenal fossa and brought out through 1 of the 5-mm ports and secured to the skin with 2-0 silk suture. All port sites were removed under laparoscopic vision without evidence of bleeding from the port sites. The port sites were infiltrated with 0.5% Marcaine and the skin edges reapproximated with 4-0 Biosyn in a subcuticular continuous fashion. Steri-Strips and Band-Aid dressings were placed. The drain was connected to bulb suction and then the patient aroused from general anesthesia and transferred to the postanesthesia care unit in stable condition, awake and alert. ESTIMATED BLOOD LOSS: 20 mL. REPLACEMENT: Crystalloid. DRAINS: One 10-mm Chon-Patterson in the gallbladder fossa. SPECIMEN: Gallbladder and contents to Pathology. I, Maicol Quijano, was physically present in the operating room from the time the patient was placed on the operating table until she was transferred to the postanesthesia care unit in [place]. MD SUZANNE Fajardo/[id number]
== END 2019-07-27 14:12 | disposition home or self-care (01) | DRG 419 ==
LOC: JER 18:22 → JERBED 20:51 → J6S 23:26
PROVIDERS: ADMIT Family Medicine; ATTEND Family Medicine
PROC: 0FT44ZZ Resection of Gallbladder, Percutaneous Endoscopic Approach (ICD-10-PCS; principal; 2019-07-25 11:30)
DX: K80.10 Calculus of gallbladder with chronic cholecystitis without obstruction (principal); K21.9 Gastro-esophageal reflux disease without esophagitis; K29.80 Duodenitis without bleeding; R10.11 Right upper quadrant pain
CPT/HCPCS: 36415; 71045-TC-FY; 76705-TC; 80053; 81003; 83690; 84703; 85025; 85610; 86850; 86900; 86901; 87086; 93005; 93010; 94760; 99283-25; J0131; J7030